=== PATIENT | female | born 1940 | race Caucasian/White ===

== ENCOUNTER 2017-09-06 10:35 | Emergency (ER) | payer MEDICARE, BC ==
[2017-09-06 10:45] VITALS: BP 145/88
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
--- NOTE | 2017-09-06 12:07 | CR ---
Chest: 2 views of the chest were obtained. Comparison: Prior chest x-ray of 07/02/15. Masslike density is noted within the left costophrenic angle. Mild interstitial fibrosis is seen within the lungs, most prominent within the left base. Lungs otherwise are clear. Heart size appears normal. Tortuous thoracic aorta is seen with atherosclerotic calcification. Sternotomy wires are seen for prior CABG. Mild degenerative change is noted within the spine. Diaphragms are flattened on the lateral view compatible with emphysematous change. Impression: 1. Masslike density within the lateral left costophrenic angle. Contrast enhanced chest CT recommended to further evaluate. 2. Emphysematous change and mild interstitial fibrosis. Diagnostic code #9
[2017-09-06] MEDS ORDERED: Sodium Chloride 0.9% 1,000 ML IV SCH (12:15)
[2017-09-06] MEDS ORDERED: Iopamidol 612 MG/ML 100 ML Bottle IVPUSH ONE (12:20)
--- NOTE | 2017-09-06 12:55 | CT ---
Addendum: Additional previous CT exam of 10/28/16 has been made available for comparison. Previously described mass within the left base is seen on this prior CT study and has significantly increased in size in the interim. Finding on prior CT exam measures about 1.8 x 1.3 cm comparing to 5.2 x 3.2 cm in similar measurement plane on current study. Subcarinal adenopathy is also an interval change. Severe emphysematous change is stable. --- Addendum1 above dictated on [09/10/2017 10:23] by [Joanie Brower, Tj Callaway] --- --- Addendum1 above signed on [09/10/2017 10:25] by [Joanie Brower, Tj Callaway] --- --- Original report below dictated on [09/06/2017 12:50] by [Joanie Brower, Tj Callaway] --- --- Original report below signed on [09/06/2017 12:53] by [Joanie Brower, Tj Callaway] --- CT chest Technique: Multiple axial sections through the chest were obtained. Intravenous contrast was utilized. Comparison: Prior chest CT of 04/30/15. Findings: Severe emphysematous changes are seen throughout both lungs. Mass is identified within the left lung base which is an interval change from prior CT exam. Mass has measurement of around 3.3 cm x 5.0 cm. Mass abuts the left chest wall. Lungs otherwise are clear. Atherosclerotic change is seen within the thoracic aorta with ectasia. AP dimension of the ascending aorta is 3.5 cm. Soft tissue fullness is seen within the subcarinal region suspicious for adenopathy. This appears more prominent than on previous exam. Sternotomy is noted from prior CABG. Small portion of the visualized upper abdominal structures are within normal limits. Small hiatal hernia is seen. Pulmonary arteries are moderately well-opacified. There are no definite filling defects within the segmental or main pulmonary arteries to indicate pulmonary embolism. Smaller subsegmental pulmonary emboli could easily be missed. Scattered degenerative spurring is noted within the spine. Impression: 1. Left lower lung mass suspicious for neoplasm. Possible adenopathy within the subcarinal region. 2. Severe emphysematous change. 3. No findings of pulmonary embolism within the main or segmental branches. Smaller subsegmental pulmonary emboli could easily be missed. 4. Other incidental findings as noted above. Diagnostic code #9 --- Addendum1 signed ---
== END 2017-09-06 14:50 | disposition home or self-care (01) ==
LOC: JD.ED 10:35
DX: C34.92 Malignant neoplasm of unspecified part of left bronchus or lung (principal); R42 Dizziness and giddiness; I11.0 Hypertensive heart disease with heart failure; I50.9 Heart failure, unspecified; J44.9 Chronic obstructive pulmonary disease, unspecified; I25.810 Atherosclerosis of coronary artery bypass graft(s) without angina pectoris; E03.9 Hypothyroidism, unspecified; Z87.891 Personal history of nicotine dependence; Z79.82 Long term (current) use of aspirin; Z79.899 Other long term (current) drug therapy
CPT/HCPCS: 36415; 36600; 71046; 71260; 80053; 82803; 83605; 83880; 84484; 85007; 85027; 85379; 85610; 85730; 87040; 93005; 96360; 96361; 99285; J7040; Q9967

== ENCOUNTER 2017-09-15 11:36 | Emergency (ER) | payer MEDICARE, BC ==
--- NOTE | 2017-09-15 12:31 | EDM.PDOC ---
ED HPI GENERAL MEDICAL PROBLEM - General Chief Complaint: Neuro Symptoms/Deficits Stated Complaint: DIZZY Time Seen by Provider: 09/15/17 12:13 Source of Information: Reports: Patient History Limitations: Reports: No Limitations - History of Present Illness INITIAL COMMENTS - FREE TEXT/NARRATIVE: 77-year-old female presents to the ED in the accompaniment of her and daughter. Provides a history of increasing ataxia with falls and inability to walk alone gradually worsening over the last 2 weeks. She did fall a week ago and hit the back of her head on cement patio deck. Was no loss of consciousness but she did have a big hematoma right occipital scalp. She has no associated nausea or vomiting. She has severe vertigo with a feeling of her head spinning with movement of her head with standing. This does not ever make her have nausea or vomiting. She can eat okay and she has no symptoms of she holds her lies perfectly still. She has had investigations carried out over [facility] with a CT of her head on the 12th of this month which essentially showed age-appropriate degenerative changes. She had an ultrasound done which showed significant atherosclerotic plaque but it never defined if there is greater than 75% occlusion of either carotid artery. 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 Patient has had increased tinnitus in her right ear. She does not wear hearing aids but recognizes her hearing is not the best. She has had mild vertigo symptoms once in the past. She does wear eyeglasses. She doesn't believe she could read a book. She states when she is walking she tends to list towards the right side. Used to smoke cigarettes but quit 5 years ago. Onset: Gradual Onset Date: 08/31/17 Duration: Week(s): (Imes to) Location: Reports: Generalized (Generalized problems with gait. I.e. severe ataxia cannot walk alone.) Quality: Reports: Other Severity: Severe (Has no pain. Severe ataxia and no longer walk alone.) Improves with: Reports: Rest Worsens with: Reports: Movement (No symptoms of she holds perfectly still. Particularly overhead.) Context: Denies: Activity, Exercise, Lifting, Sick Contact, Trauma Associated Symptoms: Reports: Other. 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: Oxygen, Other (see below) (None.) - Related Data Allergies Allergy/AdvReac Type Severity Reaction Status Date / Time Penicillins AdvReac Mouth Sores Verified 09/15/17 11:51 Home Meds: Home Meds Albuterol Sulfate [Proair Hfa] 2 puff INH Q4H PRN 03/30/15 [History] Aspirin 81 mg PO DAILY 03/30/15 [History] Cod Liver Oil 530 mg PO DAILY 03/30/15 [History] Levothyroxine [Synthroid] 50 mcg PO BEDTIME 03/30/15 [History] Loratadine [Claritin] 10 mg PO DAILY PRN 03/30/15 [History] Multivitamin [Multivitamins] 1 cap PO DAILY 03/30/15 [History] Sertraline [Zoloft] 75 mg PO DAILY 03/30/15 [History] Tiotropium [Spiriva HandiHaler] 1 puff PO DAILY 03/30/15 [History] Metoprolol Succinate [Toprol XL] 25 mg PO DAILY #30 tab.er 04/05/15 [Rx] Fluticasone/Salmeterol [Advair Diskus 250-50] 1 puff INH BID 04/29/15 [History] Furosemide 40 mg PO ACBREAKFAST 04/29/15 [History] Potassium Chloride [K-Tab ER] 20 meq PO TID 04/29/15 [History] Ubidecarenone [Co Q-10] 100 mg PO BEDTIME 04/29/15 [History] Polyethylene Glycol 3350 [MiraLAX] 17 gm PO Q72H 06/30/15 [History] Fluticasone Propionate [Flovent HFA 110 MCG] 1 puff INH BID PRN 09/06/17 [ History] Furosemide [Lasix] 20 mg PO ACLUNCH 09/06/17 [History] Nabumetone 750 mg PO DAILY 09/06/17 [History] Oxygen 3 liter INH ASDIRECTED 09/06/17 [History] Sennosides [Senna Lax] 8.6 mg PO BEDTIME 09/06/17 [History] Sildenafil [Revatio] 20 mg PO TID 09/06/17 [History] atorvaSTATin Calcium [Atorvastatin Calcium] 20 mg PO DAILY 09/06/17 [History] Dexamethasone 4 mg PO TID #30 tablet 09/15/17 [Rx] Diltiazem [Cardizem CD] 120 mg PO DAILY 09/15/17 [History] Past Medical History HEENT History: Reports: Allergic Rhinitis, Impaired Vision Cardiovascular History: Reports: CAD, Heart Failure, High Cholesterol, Hypertension Other Cardiovascular History: pt states none since open heart surgery Respiratory History: Reports: COPD (Is on oxygen 3 L/m at most times. 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 - Infectious Disease History Infectious Disease History: Reports: Chicken Pox - Past Surgical History HEENT Surgical History: Reports: Cataract Surgery, Tonsillectomy Cardiovascular Surgical History: Reports: Coronary Artery Bypass Social & Family History - Family History Family Medical History: Unobtainable HEENT: Reports: Cataract Cardiac: Reports: Bypass, CT Musculoskeletal: Reports: Arthritis Neurological: Reports: Alzheimers Disease Hematologic: Reports: None Immunologic: Reports: None Dermatologic: Reports: Eczema Oncologic: Reports: Leukemia - Tobacco Use Smoking Status *Q: Former Smoker Used Tobacco, but Quit: Yes Month/Year Tobacco Last Used: 05/2012 - Caffeine Use Caffeine Use: Reports: None - Recreational Drug Use Recreational Drug Use: No - Living Situation & Occupation Living situation: Reports: , with Spouse Occupation: Retired [employer] - Review of Systems Review Of Systems: See Below Constitutional: Reports: Weakness. Denies: Fever, Chills, Malaise, Fatigue, Night Sweats, Diaphoresis, Decreased Appetite, Weight Loss HEENT: Reports: Glasses, Hearing Loss, Other (Appreciates hearing loss bilaterally. Tinnitus primarily in her right ear intermittently. Not currently present today) Respiratory: Reports: Shortness of Breath, Cough (Chronically due to COPD commit nonproductive cough or if she does cough up anything is usually clear to white.) Cardiovascular: Reports: Dyspnea on Exertion. Denies: Chest Pain Endocrine: Reports: Fatigue (Chronically is oxygen dependent.) GI/Abdominal: Reports: Constipation (Intermittently). Denies: Distension, Flatus, Hematemesis, Hematochezia, Mucous in Stool, Nausea, Stool Incontinence, Vomiting, Other : Reports: Frequency, Incontinence (Sometimes urge incontinence.) Musculoskeletal: Reports: Neck Pain (Knees hips and neck at times), Joint Pain Skin: Reports: No Symptoms, Bruising (Bruises easily from being on aspirin.) Neurological: Reports: Dizziness, Difficulty Walking. Denies: Confusion, Headache (Severe dizziness please see history of present illness), Paresthesia, Pre-Existing Deficit, Seizure, Syncope, Tremors, Trouble Speaking (Due to ataxia ), Weakness, Change in Speech Psychiatric: Reports: No Symptoms Hematologic/Lymphatic: Reports: No Symptoms Immunologic: Reports: No Symptoms ED EXAM, DIZZINESS - Physical Exam Exam: See Below Exam Limited By: Uncooperative General Appearance: Alert, WD/WN, No Apparent Distress, Thin Eye Exam: Right Eye: Nystagmus Nystagmus: short duration Ears: Normal External Exam, Normal TMs Throat/Mouth: Normal Inspection, Normal Lips, Normal Teeth, Normal Oropharynx, Other Head Exam: Atraumatic (Uvula is in the midline.), Normocephalic Vertigo: worsens with head to R Neck: Normal Inspection, Supple, Limited Range of Motion, Tender Lateral ( Bilaterally.). No: Lymphadenopathy (L), Lymphadenopathy (R) Respiratory/Chest: Normal Breath Sounds, Respiratory Distress (Ruddy to Rest with sats of 100% on 3 L/m by nasal cannula.), Decreased Breath Sounds. No: Rales, Rhonchi (Decreased air into the lower 25% lung cuadra bilaterally without any adventitial sounds.), Wheezing Cardiovascular: Normal Peripheral Pulses, Regular Rate, Rhythm, No Edema, No Gallop, No Murmur, No Rub GI/Abdominal: Normal Bowel Sounds, Soft, Non-Tender, No Organomegaly, No Distention, No Abnormal Bruit, No Mass, Pelvis Stable Neurological: Alert, Normal Mood/Affect, Normal Dorsiflexion, CN II-XII Intact, Normal Plantar Flexion, Oriented x 3, Abnormal Finger to Nose (No pronator drift.), Difficulty Walking (Due to severe ataxia.), Other ( has ataxia bilaterally on finger to nose assessment as well as [id number] assessment.). No: Normal Gait, Normal Reflexes DTR: 1+: Bicep (R), Bicep (L), Patella (R), Patella (L) Back Exam: Other (Moderate kyphosis thoracic spine) Extremities: Normal Inspection, Normal Range of Motion, Non-Tender, No Pedal Edema, Other Psychiatric: Normal Affect, Normal Mood (There is evidence of osteophytic changes both knees and both hips with decreased range of motion.) Skin Exam: Warm, Dry, Intact, Normal Color, No Rash Course - Vital Signs Last Recorded V/S: Last Vital Signs Temp 37.0 C 09/15/17 11:46 Pulse 83 09/15/17 11:46 Resp 20 09/15/17 11:46 BP 135/81 09/15/17 11:46 Pulse Ox 100 09/15/17 11:46 Orthostatic Blood Pressure [ 118/73 Standing] Orthostatic Blood Pressure [ 118/82 Sitting] Orthostatic Blood Pressure [ 130/67 Supine] - Orders/Labs/Meds Orders: Active Orders 24 hr Category Date Time Status Orthostatic Vital Signs [RC] ASDIRECTED Care 09/15/17 12:14 Active Sodium Chloride 0.9% [Normal Saline] 1,000 ml Med 09/15/17 12:45 Active IV ASDIRECTED Medication Orders Sodium Chloride (Normal Saline) 1,000 mls @ 150 mls/hr IV ASDIRECTED CALIXTO Last Admin: 09/15/17 12:46 Dose: 150 mls/hr Labs: Laboratory Tests 09/15/17 09/15/17 Range/Units 12:40 12:40 WBC 7.65 (3.98-10.04) K/mm3 RBC 3.64 L (3.98-5.22) M/mm3 Hgb 9.9 L (11.2-15.7) gm/L Hct 31.5 L (34.1-44.9) % MCV 86.5 (79.4-94.8) fl MCH 27.2 (25.6-32.2) pg MCHC 31.4 L (32.2-35.5) g/dl RDW Std Deviation 45.7 (36.4-46.3) fL Plt Count 353 (182-369) K/mm3 MPV 8.9 L (9.4-12.3) fl Neutrophils % (Manual) 81 H (40-60) % Band Neutrophils % 1 (0-10) % Lymphocytes % (Manual) 12 L (20-40) % Atypical Lymphs % 0 % Monocytes % (Manual) 6 (2-10) % Eosinophils % (Manual) 0 L (0.7-5.8) % Basophils % (Manual) 0 L (0.1-1.2) Platelet Estimate Adequate Polychromasia 1+ slight Poikilocytosis 1+ slight Anisocytosis 1+ slight RBC Morph Comment Not Reportable Sodium 137 (136-145) mEq/L Potassium 4.6 (3.5-5.1) mEq/L Chloride 102 (98-107) mEq/L Carbon Dioxide 27 (21-32) mEq/L Anion Gap 12.6 (5-15) BUN 17 (7-18) mg/dL Creatinine 1.3 H (0.55-1.02) mg/dL Est Cr Clr Drug Dosing 30.93 mL/min Estimated GFR (MDRD) 40 (>60) mL/min BUN/Creatinine Ratio 13.1 L (14-18) Glucose 102 (83-115) mg/dL Calcium 9.1 (8.5-10.1) mg/dL Magnesium 2.2 (1.8-2.4) mg/dl Total Bilirubin 0.4 (0.2-1.0) mg/dL AST 21 (15-37) U/L ALT 18 (14-59) U/L Alkaline Phosphatase 70 (46-116) U/L C-Reactive Protein 8.6 H* (<1.0) mg/dL Total Protein 7.1 (6.4-8.2) g/dl Albumin 2.7 L (3.4-5.0) g/dl Globulin 4.4 gm/dL Albumin/Globulin Ratio 0.6 L (1-2) Meds: Medications Generic Name Dose Route Start Last Admin Trade Name Freq PRN Reason Stop Dose Admin Sodium Chloride 1,000 mls @ 150 mls/hr 09/15/17 12:45 09/15/17 12:46 Normal Saline IV 150 mls/hr ASDIRECTED CALIXTO Administration Discontinued Medications Generic Name Dose Route Start Last Admin Trade Name Freq PRN Reason Stop Dose Admin Midazolam HCl 2 mg 09/15/17 14:20 09/15/17 14:28 Versed 1 Mg/Ml IVPUSH 09/15/17 14:21 2 mg ONETIME ONE Administration - Radiology Interpretation Free Text/Narrative:: 77-year-old female presents to the ED with gradually worsening ataxia which she calls dizziness over the last 2 weeks. She did fall a week ago and struck the right occipital aspect of her head on the patio concrete. There was no loss of consciousness but she did have a scalp hematoma. She said CT of the brain carried out on September 09 through the [facility] and it was read as degenerative changes only with no subdural. She also had ultrasound of her carotid arteries which showed significant atherosclerotic plaque in both carotids but they did not define if there was greater than 75% occlusion that would warrant treatment. 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 On my assessment she has sustained last sustained nystagmus on looking to the right. She also has associated diplopia on looking to the right for very long. She has marked impairment bilaterally of fingertips to nose assessment and heel to augustine. She is therefore exhibiting bilateral cerebellar symptoms. This most likely is secondary to ischemia. She denies alcoholism in the past. She quit smoking 5 years ago. She has COPD patient and is on oxygen 3 L/m all times. She is known to have significant pulmonary hypertension. Plan routine labs will be obtained. MRI will be booked tentatively for later this afternoon with and without contrast provide your kidney function is okay. - Re-Assessments/Exams Free Text/Narrative Re-Assessment/Exam: 09/15/17 14:22 Labs reveal a normal white count at 7.65. Note she is anemic with a hemoglobin of 9.9. Hematocrit is 31.5. MCV is 86.5. Reticulocyte count is normal at 353,000. Differential shows 81% neutrophils and 1% band cells. Sodium was 137 with potassium 4.6. Chloride is 12 with a bicarbonate 27. Anion gap is 12.6. BUNs 17. Creatinine is 1.3. Slightly elevated GFR is 40. This represents stage III chronic kidney disease. Glucose is 102 with a calcium of 9.1. Magnesium is 2.2. Total bilirubin is 0.4. AST is 21 with an ALT of 18. Alk phosphatase is 70. C-reactive protein is elevated at 8.6. Albumin fraction is low at 2.7. With her GFR of only 46 there is a relative contraindication to giving MRI contrast. Therefore this MRI of her brain will be done without contrast. 09/15/17 16:20; MRI of the brain has been reviewed read by radiologist. He identifies an area of increased signal scattered within the periventricular and subcortical white matter compatible with small vessel ischemic changes bilaterally. Ventricles along the basal cisterns and sulci over the convexities are also mildly prominent. The major finding is a mass identified within the midline of the posterior fossa this mass measures approximately 2.1 x 2.1 x 2.5 cm. This causes surrounding edema within the cerebellum this is of low signal on T1 sequence as well as low in signal on the T2 sequence. This has the finding most likely due to meningioma although this cannot be confirmed without contrast administration. Possibility of metastatic disease also exists. Of note the patient is also under the investigation at present for a coin lesion in her lung by Dr. De La Vega chicken boner in [place]. She is scheduled for repeat interventional radiology biopsy of this lesion on the of this month. The fact that she is also anemic with a hemoglobin of 9.9 is worrisome for occult malignancy. I am going to place her on dexamethasone 4 mg 3 times daily for the next 10 days in an effort to reduce edema and swelling around the cerebellar tumor as her balance is extremely poor over the last 2 days and worsening. I did let Dr. Sweeney, her primary care physician of today's findings on MRI. 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 Associated persistent headache at the base of your brain. Neuro exam performed in the ED today was concerning for a problem with your balance mechanism of the brain called the cerebellum. Therefore MRI of the brain was carried out and it does reveal a tumor involving the middle portion of your cerebellum approximate the size of a golf ball. This is the cause of the off-balance feeling. There is some surrounding swelling around the tumor called edema and sometimes we can improve this with medication. Therefore I did place you on a steroid medication called dexamethasone 4 mg strength. This is to be taken 3 times daily about every 8 hours with little fluid in your stomach. Propacet within a couple of days this improves your balance events of fall. Strongly suggest to walk with a walker at all times to try and prevent a fall. Follow-up is required with Dr. Leroy oncologist who will direct your care. Ideally you need to see a neurosurgeon and then a radiation oncologist to see if this tumor is benign or malignant. Also to see whether or not it would shrink with radiation therapy or could be removed surgically. So suggest follow-up with Dr. Sweeney in this regard. - My Orders Last 24 Hours: My Active Orders 09/15/17 12:14 Orthostatic Vital Signs [RC] ASDIRECTED 09/15/17 12:45 Sodium Chloride 0.9% [Normal Saline] 1,000 ml IV ASDIRECTED - Assessment/Plan Last 24 Hours: My Active Orders 09/15/17 12:14 Orthostatic Vital Signs [RC] ASDIRECTED 09/15/17 12:45 Sodium Chloride 0.9% [Normal Saline] 1,000 ml IV ASDIRECTED
[2017-09-15] MEDS ORDERED: Sodium Chloride 0.9% 1,000 ML IV SCH (12:45)
[2017-09-15] MEDS ORDERED: Midazolam 1 MG/ML 2 ML SDV IVPUSH ONE (14:20)
--- NOTE | 2017-09-15 15:46 | MR ---
MRI brain Technique: T1, T2, diffusion axial; T1 coronal; T1 sagittal images were obtained through the brain. Findings: Mass is identified within the midline of the posterior fossa. This mass measures approximately 2.1 x 2.1 x 2.5 cm. This causes surrounding edema within the cerebellum. This is of low signal on the T1 sequence as well as low in signal on the T2 sequence. Mild areas of increased signal scattered within the periventricular and subcortical white matter compatible with small vessel ischemic demyelination change. Ventricles along with basal cisterns and sulci over the convexities are mildly prominent. Impression: 1. Posterior fossa mass located within the midline. This causes surrounding edema within the cerebellum. Findings most likely due to meningioma although this cannot be confirmed without contrast administration. 2. Other senescent change as noted above. Diagnostic code #9
[2017-09-15 16:59] VITALS: BP 110/65
== END 2017-09-15 17:05 | disposition home or self-care (01) ==
LOC: JD.ED 11:36
DX: D43.1 Neoplasm of uncertain behavior of brain, infratentorial (principal); R27.0 Ataxia, unspecified; J44.9 Chronic obstructive pulmonary disease, unspecified; I11.0 Hypertensive heart disease with heart failure; I50.9 Heart failure, unspecified; E78.00 Pure hypercholesterolemia, unspecified; I25.10 Atherosclerotic heart disease of native coronary artery without angina pectoris; E03.9 Hypothyroidism, unspecified; Z79.82 Long term (current) use of aspirin; Z79.899 Other long term (current) drug therapy; Z88.0 Allergy status to penicillin
CPT/HCPCS: 36415; 70551; 80053; 83735; 85007; 85027; 86140; 96361; 96374; 99284; J2250; J7040